=== PATIENT | female | born 1975 ===

== ENCOUNTER 2023-08-31 14:49 | Outpatient (REF) | payer OTHER, SELFPAY ==
[2023-08-31 14:48] LABS: Abs Immature Grans 0.02 10^3/uL (0.0-0.06); Absolute Basophil Count 0.07 10^3/uL (0.0-0.2); Absolute Eosinophil Count 0.21 10^3/uL (0.0-0.7); Absolute Lymphocyte Count 1.37 10^3/uL (1.2-3.4); Absolute Monocyte Count 0.47 10^3/uL (0.1-0.8); Absolute Neutrophil Count 2.29 10^3/uL (1.2-6.7); Basophils % 1.6; Eosinophils % 4.7; HCT 43.5 % (36.0-46.0); HGB 13.9 g/dL (11.2-15.7); Immature Grans % 0.5; Lymphocytes % 30.9; MCH 27.2 pg (27.0-33.0); MCV 85 fL (80-95); MPV 10.3 fL (8.0-11.0); Monocytes % 10.6; Neutrophils % 51.7; Platelet Count 339 10^3/uL (130-400); RBC 5.11 10^6/uL (3.93-5.22); RDW 13.3 % (11.7-14.6); WBC 4.43 10^3/uL (4.4-10.8)
[2023-08-31 15:26] LABS: ALT 22 U/L (14-59); AST 16 U/L (15-37); Albumin 4.1 g/dL (3.4-5.0); Alkaline Phosphatase 52 U/L (46-116); Anion Gap 9.7 mmol/L (3-11); BUN 13 mg/dL (7-18); Bilirubin, Total 0.4 mg/dL (0.2-1.0); CO2 26.3 mmol/L (21.0-32.0); CREATININE 0.7 mg/dL (0.55-1.02); Calcium 9.7 mg/dL (8.5-10.1); Chloride 103 mmol/L (98-107); Estimated GFR 108.62 (mL/min/1.73m2); Glucose 87 mg/dL (74-106); Potassium 4.7 mmol/L (3.5-5.1); Sodium 139 mmol/L (136-145); Total Protein 7.5 g/dL (6.4-8.2)
[2023-09-01 10:15] LABS: IgA 221 mg/dL (85-499); Interpretation (See Note); Tissue Transglutaminase IgA <4.0 CU (<20.0)
== END 2023-08-31 14:50 | disposition home or self-care (01) ==
LOC: NCHCN 14:49
PROVIDERS: Visit Provider Family Medicine
DX: R10.9 Unspecified abdominal pain (principal)
CPT/HCPCS: 80053; 82784; 83516; 85025

== ENCOUNTER 2023-12-08 15:03 | Outpatient (REF) | payer BC, SELFPAY ==
[2023-12-08 14:37] LABS: Iron 92 ug/dL (50-170); Total Iron Binding Capacity 412 ug/dL (250-450); Transferrin Sat 22 % (15-50)
[2023-12-08 15:08] LABS: ALT 22 U/L (14-59); AST 17 U/L (15-37); Albumin 4.1 g/dL (3.4-5.0); Alkaline Phosphatase 53 U/L (46-116); Anion Gap 8.9 mmol/L (3-11); BUN 11 mg/dL (7-18); Bilirubin, Total 0.4 mg/dL (0.2-1.0); CO2 28.1 mmol/L (21.0-32.0); CREATININE 0.9 mg/dL (0.55-1.02); Calcium 9.2 mg/dL (8.5-10.1); Chloride 105 mmol/L (98-107); Estimated GFR 79.85 (mL/min/1.73m2); Ferritin 13 ng/mL (8-252); Glucose 90 mg/dL (74-106); Potassium 5.1 mmol/L (3.5-5.1); Sodium 142 mmol/L (136-145); TSH (W/Ref FT4) 2.83 uIU/mL (0.36-3.74); Total Protein 7.1 g/dL (6.4-8.2); Vitamin B12 358 pg/mL (193-986)
[2023-12-08 15:19] LABS: Lipase 78 U/L (16-77)
== END 2023-12-08 15:04 | disposition home or self-care (01) ==
LOC: NCHCN 15:03
PROVIDERS: Visit Provider Family Medicine
DX: R10.11 Right upper quadrant pain (principal); G62.9 Polyneuropathy, unspecified
CPT/HCPCS: 80053; 83690; 82607; 82728; 83540; 83550; 84443

== ENCOUNTER 2024-02-10 20:08 | Outpatient (REF) | payer BC, SELFPAY ==
[2024-02-10 20:31] LABS: Bacteria Rare HPF (Negative); C & S Indicated? C&S Done As Ordered; Casts Negative LPF (Negative); Crystals Negative HPF (Negative); Epithelial Cells Rare HPF (Negative); Mucus Negative (Negative); RBC 0-2 HPF (0-2)
[2024-02-13 12:51] LABS: Chlamydia Result Negative (Negative); GC Result Negative (Negative)
== END 2024-02-10 20:09 | disposition home or self-care (01) ==
LOC: LBN 20:08
PROVIDERS: Visit Provider Physician Assistant Medical
DX: R30.0 Dysuria (principal); N89.8 Other specified noninflammatory disorders of vagina; Z11.3 Encounter for screening for infections with a predominantly sexual mode of transmission
CPT/HCPCS: 87491; 87591; 81015; 87086; 87480; 87510; 87660